=== PATIENT | male | born 1965 | race Caucasian/White ===

== ENCOUNTER 2019-02-20 23:04 | Emergency (ER) | payer OTHER ==
[~2019-02-20] VITALS: Ht 180.3 cm; Wt 98.9 kg
[~2019-02-20 23:04] MED LIST: NOHOMEMEDICATIONS
[2019-02-20] MEDS ORDERED: PRINIVIL20 M1 PO (23:14)
[2019-02-20 23:24] LABS: ABSOLUTE BASOPHILS 0.1 thou/uL (0.0-0.2); ABSOLUTE EOSINOPHILS 0.3 thou/uL (0.0-0.7); ABSOLUTE LYMPHOCYTES 3.2 thou/uL (0.8-5.3); ABSOLUTE MONOCYTES 0.9 thou/uL (0.0-1.2); ABSOLUTE NEUTROPHILS 5.5 thou/uL (1.6-8.1); BASOPHILS 1.3 %; EOSINOPHILS 2.8 %; HEMATOCRIT 44.8 % (42.0-52.0); HEMOGLOBIN 15.6 gm/dL (14.0-18.0); LYMPHOCYTES 31.6 %; MCH 32.6 pg (26.0-34.0); MCHC 34.9 g/dL (28.0-37.0); MCV 93.4 fL (80.0-100.0); MONOCYTES 9.4 %; MPV 8.1 fl. (7.2-11.1); NUCLEATED RBCS 0 /100WBC; PLATELET COUNT* 230 thou/uL (150-400); POLYS 54.9 %; RBC 4.79 mil/uL (4.50-6.00); RDW-CV 13.3 % (10.5-14.5)
[2019-02-20 23:37] LABS: PROTIME 10.2 Seconds (9.20-11.50)
[2019-02-20 23:51] LABS: CALCIUM 9.3 mg/dL (8.5-10.1); CREATININE 1.4 mg/dL (0.6-1.3); POTASSIUM 4.3 mmol/L (3.5-5.1)
[2019-02-21 00:02] LABS: ALBUMIN 3.3 g/dL (3.4-5.0); TOTAL BILIRUBIN 0.3 mg/dL (<0.1-1.0); TOTAL PROTEIN 7.7 g/dL (6.4-8.2)
[2019-02-21 02:21] VITALS: BP 128/79
--- NOTE | 2019-02-21 14:26 | EKG ---
[place] [address] ELECTROCARDIOGRAM REPORT Name: LUIS SYED [id number] Admission: 02/20/19 Attend Phys: Discharge: 02/21/19 Date of : 61 Report #: [id number] THIS REPORT FOR: //name// [facility] ED Test Date: 2019-02-20 Test Time: 23:07:14 Pat Name: LUIS YAHAIRA Department: Room: Gender: M Fingernail Former: : 1965 Requested By: Cherie Henderson Order Number: [id number] MD: Samson Mendoza Measurements Intervals [place] Rate: 87 P: 69 [place]: 134 QRS: 68 QRSD: 99 T: 20 QT: 355 QTc: 427 Interpretive Statements Sinus rhythm Ventricular premature complex Borderline low voltage, extremity leads No previous ECG available for comparison Electronically Signed On 02-21-2019 14:26:09 CDT by Samson Mendoza [email or web address] <ELECTRONICALLY SIGNED> By: Samson Mendoza MD, [facility] 02/21/19 1426 2307 2307 Samson Mendoza MD, FACC /EPI
--- NOTE | 2019-02-21 14:26 | EKG ---
[place] [address] ELECTROCARDIOGRAM REPORT Name: LUIS SYED Room: [facility] Trace#: [id number] Admission: 02/20/19 Attend Phys: Discharge: 02/21/19 Date of : 61 Report #: [id number] THIS REPORT FOR: //name// [facility] ED Test Date: 2019-02-20 Test Time: 23:18:03 Pat Name: LUIS SYED Department: Room: Gender: M [employer] Attendant: GIO : 1965 Requested By: Cherie Henderson Order Number: [id number] MD: Samson Mendoza Measurements Intervals [place] Rate: 88 P: 62 [place]: 132 QRS: 70 QRSD: 95 T: 16 QT: 348 QTc: 421 Interpretive Statements Sinus rhythm Electronically Signed On 02-21-2019 14:26:29 CDT by Samson Mendoza [email or web address] <ELECTRONICALLY SIGNED> By: Samson Mendoza MD, [facility] 02/21/19 1426 2318 2318 Samson Mendoza MD, FACC /EPI
== END 2019-02-21 02:21 | disposition left against medical advice (07) ==
LOC: M.ERS 23:04
PROVIDERS: Emergency Medicine
DX: R07.9 Chest pain, unspecified (principal); I10 Essential (primary) hypertension; F17.210 Nicotine dependence, cigarettes, uncomplicated

== ENCOUNTER 2020-11-27 12:46 | Emergency (ER) | payer MEDICAID ==
[~2020-11-27] VITALS: Ht 180.3 cm; Wt 99.8 kg
[~2020-11-27 12:46] MED LIST changes: +PRINIVIL20 M1 PO
[2020-11-27] MEDS ORDERED: NORCO5 PO ×2 (14:52→15:02)
[2020-11-27 15:09] VITALS: BP 126/68
== END 2020-11-27 15:09 | disposition home or self-care (01) ==
LOC: M.ERS 12:46
DX: M25.561 Pain in right knee (principal); I10 Essential (primary) hypertension; E78.5 Hyperlipidemia, unspecified; F17.210 Nicotine dependence, cigarettes, uncomplicated